=== PATIENT | female | born 1970 | race Caucasian/White ===

== ENCOUNTER 2021-09-28 12:41 | Outpatient (CLI) | payer BC, SELFPAY ==
--- NOTE | 2021-09-28 12:46 | ECHOD_ITS ---
Version 2 Reason For Study: Dyspnea/SOB Procedure This was a 2D Doppler, Color Flow transthoracic echocardiogram. Exam performed in department. Left Ventricle Normal LV size. Left ventricular systolic function is normal. The estimated ejection fraction is 60 %. Stage 1 diastolic dysfunction. No regional wall motion abnormalities noted. Right Ventricle Normal RV size. Normal systolic function. Atria Normal left atrium. Normal right atrium. Mitral Valve Normal mitral valve. Tricuspid Valve Normal tricuspid valve. Unable to estimate RV systolic pressure due to inadequate jet, pulmonary artery pressure probably normal. Aortic Valve Normal aortic valve. Trisinus/trileaflet aortic valve. Pulmonic Valve Normal pulmonic valve. Great Vessels Normal aortic root. The pulmonary artery is normal size. Normal inferior vena cava. Pericardium/Pleural No pericardial effusion. MMode/2D Measurements & Calculations LVIDd: 3.5 cm IVSd: 0.91 cm Ao root diam: 2.5 cm LVIDs: 2.4 cm LVPWd: 0.92 cm RVDd: 1.9 cm FS: 31.4 % LAV(MOD-bp): 16.3 ml LVAd ap4: 17.7 cm2 SV(MOD-sp4): 21.9 ml LAV(MOD-bp) Indexed: 9.5 ml/m2 LVLd ap4: 7.2 cm LAV(MOD-sp2): 16.3 ml EDV(MOD-sp4): 36.5 ml LAV(MOD-sp4): 13.9 ml EDV(sp4-el): 36.8 ml LVAs ap4: 9.8 cm2 LVLs ap4: 5.9 cm ESV(MOD-sp4): 14.6 ml ESV(sp4-el): 13.7 ml EF(MOD-sp4): 59.9 % EF(sp4-el): 62.6 % SV(sp4-el): 23.0 ml LA A4 area: 8.3 cm2 LA dimension(2D): 2.4 cm RA A4 area: 5.3 cm2 Doppler Measurements & Calculations MV E max westley: 59.6 cm/sec Lat Peak E' Westley: 13.8 cm/sec Med Peak E' Westley: 8.4 cm/sec MV A max westley: 73.2 cm/sec E/E' lat: 4.3 E/E' med: 7.1 MV E/A: 0.81 Ao V2 max: 101.4 cm/sec LV V1 max: 89.5 cm/sec PA V2 max: 63.1 cm/sec Ao max P.1 mmHg LV V1 max P.2 mmHg Ao V2 mean: 79.5 cm/sec Ao mean P.7 mmHg Ao V2 VTI: 17.1 cm ECHO/Echo Complete Interpretation Summary Normal LV size. Left ventricular systolic function is normal. The estimated ejection fraction is 60 %. Stage 1 diastolic dysfunction. Unable to estimate RV systolic pressure due to inadequate jet, pulmonary artery pressure probably normal. Ordering Physician: Collin Brown Referring Physician: Collin Brown Performed By: Anabel Hines RDCS, RVT
== END 2021-09-28 23:59 | disposition short-term general hospital (02) ==
PROVIDERS: Referring Provider Internal Medicine Critical Care Medicine; Visit Provider Internal Medicine Critical Care Medicine
DX: U07.1 COVID-19 (principal); R06.00 Dyspnea, unspecified; R06.02 Shortness of breath
CPT/HCPCS: 93306

== ENCOUNTER 2021-10-05 12:50 | Outpatient (CLI) | payer BC, SELFPAY ==
--- NOTE | 2021-10-07 07:05 | PFT ---
INTRODUCTION: The patient is a 51-year-old female that presents for pulmonary function studies secondary to a diagnosis of hypoxemia. Respiratory therapy reported good patient effort. Bronchodilators were used during testing. INTERPRETATION: Forced expiration spirometry demonstrates no evidence of a large airways obstructive ventilatory defect. There was no significant response to aerosolized bronchodilators. Spirograms are of good quality and plateau normally. Body plethysmography was performed and revealed a decreased TLC to 3.72 L, 72% of predicted, indicative of a mild restrictive ventilatory impairment. Diffusing capacity by single breath CO is reduced at 71% of predicted. IMPRESSION: Mild restrictive ventilatory impairment with symmetric reduction in diffusing capacity.
== END 2021-10-05 23:59 | disposition short-term general hospital (02) ==
PROVIDERS: Referring Provider Internal Medicine Critical Care Medicine; Visit Provider Internal Medicine Critical Care Medicine
DX: U07.1 COVID-19 (principal); J96.01 Acute respiratory failure with hypoxia
CPT/HCPCS: 94060; 94726; 94729

== ENCOUNTER 2021-10-08 12:51 | Outpatient (CLI) | payer BC, SELFPAY ==
[2021-10-08 13:22] VITALS: PULSE 116; PULSE 119; PULSE 120; PULSE 122; PULSE 127; PULSE 129; PULSE 130; PULSE 133; O2SAT 92; O2SAT 93; O2SAT 94; O2SAT 96; O2SAT 98
--- NOTE | 2021-10-08 13:28 | CPS ---
PATIENT ARRIVED ON RA FOR WALK TEST. SHE HAS OXYGEN AT HOME THROUGH [facility] HOSPITAL[facility]ATION IN AUGUST 2021. ENTIRE 6MIN WALK TEST ABLE TO BE COMPLETED ON ROOM AIR. PATIENT DECLINED THE NEED FOR REST BREAKS THROUGHOUT TESTING.
--- NOTE | 2021-10-09 10:14 | WT_ITS ---
PSN 6 Minute Walk Test 6 Minute Walk Test 6 Minute Walk Test: 6 Minute Walk Test PSN:6-Minute Walk Test Start: 10/08/21 13:22 Freq: Status: Active Protocol: [id number] Document 10/08/21 13:22 [facility] (Rec: 10/08/21 13:30 [facility] [id number]) 6 Minute Walk Test Date Performed 10/08/21 Time Performed 13:00 Height 5 ft 5 in Weight: 65.771 kg Weight in Pounds 145.[address]: Collin Brown Assistive device used: None Pre-test Oxygen Delivery Method Room Air Pulse Ox (%) 98 Pulse Rate (60-100 beats/min) 116 H Dyspnea June Scale (0-10) 2 1st minute Oxygen Delivery Method Room Air Pulse Ox (%) 96 Pulse Rate (60-100 beats/min) 120 H Dyspnea June Scale (0-10) 3 Number of Rests Taken 0 Reported Symptoms Increased Work of Breathing 2nd minute Oxygen Delivery Method Room Air Pulse Ox (%) 94 Pulse Rate (60-100 beats/min) 122 H Dyspnea June Scale (0-10) 3 Number of Rests Taken 0 Reported Symptoms Increased Work of Breathing 3rd minute Oxygen Delivery Method Room Air Pulse Ox (%) 92 Pulse Rate (60-100 beats/min) 127 H Dyspnea June Scale (0-10) 3 Number of Rests Taken 0 Reported Symptoms Increased Work of Breathing 4th minute Oxygen Delivery Method Room Air Pulse Ox (%) 93 Pulse Rate (60-100 beats/min) 133 H Dyspnea June Scale (0-10) 4 Number of Rests Taken 0 Reported Symptoms Increased Work of Breathing 5th minute Oxygen Delivery Method Room Air Pulse Ox (%) 94 Pulse Rate (60-100 beats/min) 129 H Dyspnea June Scale (0-10) 4 Number of Rests Taken 0 Reported Symptoms Increased Work of Breathing 6th minute Oxygen Delivery Method Room Air Pulse Ox (%) 93 Pulse Rate (60-100 beats/min) 130 H Dyspnea June Scale (0-10) 4 Number of Rests Taken 0 Reported Symptoms Increased Work of Breathing Post-test Oxygen Delivery Method Room Air Pulse Ox (%) 98 Pulse Rate (60-100 beats/min) 119 H Dyspnea June Scale (0-10) 2 Full Laps Walked 19 Partial Lap, Number of Tiles Walked 37 Total Distance Walked (ft) 1158 10/08/21 13:28 Cardiopulmonary Services by Bobbi Ceballos PATIENT ARRIVED ON RA FOR WALK TEST. SHE HAS OXYGEN AT HOME THROUGH [facility]OSPITAL[facility] IN AUGUST 2021. ENTIRE 6MIN WALK TEST ABLE TO BE COMPLETED ON ROOM AIR. PATIENT DECLINED THE NEED FOR REST BREAKS THROUGHOUT TESTING. Initialized on 10/08/21 13:28 - END OF NOTE Interpretation Interpretation: The patient ambulated 1158 feet over the course of 6 minutes beginning on room air without assistive devices. Pretesting oxygen saturation was noted to be 98% on room air. With ambulation, the chata oxygen saturation was 92%. This represents a significant exertional oxygen desaturation. Recommendations Recommendations: There is no indication for the use of supplemental oxygen at this time. However, close interval follow-up is recommended, given the degree of oxygen desaturation noted during the study.
== END 2021-10-08 23:59 | disposition short-term general hospital (02) ==
LOC: PSN 12:53
PROVIDERS: Referring Provider Internal Medicine Critical Care Medicine; Visit Provider Internal Medicine Critical Care Medicine
DX: U07.1 COVID-19 (principal); J96.01 Acute respiratory failure with hypoxia
CPT/HCPCS: 94618

== ENCOUNTER 2021-11-03 13:44 | Outpatient (RCR) | payer BC, SELFPAY ==
--- NOTE | 2021-11-12 07:43 | HP.OTFCE.D ---
FCE D/C Summary - Discharge LOUIS NAJERA was seen for a one time visit for an FCE on 11/03/21 and is discharged.
--- NOTE | 2021-11-12 07:43 | HP.FCE ---
Floor (Occasional 1-33% of Day): 35# Floor (Frequent 34-66% of Day): 18# Floor (Constant 67-100% of Day): 7# Floor PDL: Light-Medium Knee (Occasional 1-33% of Day): 30# Knee (Frequent 34-66% of Day): 15# Knee (Constant 67-100% of Day): 6# Knee PDL: Light-Medium Waist (Occasional 1-33% of Day): 30# Waist (Frequent 34-66% of Day): 15# Waist (Constant 67-100% of Day): 6# Waist PDL: Light-Medium Shoulder (Occasional 1-33% of Day): 30# Shoulder (Frequent 34-66% of Day): 15# Shoulder (Constant 67-100% of Day): 6# Shoulder PDL: Light-Medium Overhead (Occasional 1-33% of Day): 15# Overhead (Frequent 34-66% of Day): 8# Overhead (Constant 67-100% of Day): NA Overhead PDL: Sedentary-Light Bending: Frequent Ability (34-66% of day) Squatting: Frequent Ability (34-66% of day) Kneeling: Occasional Ability (1-33% of day) Reaching out: Constant Ability (67-100% of day) Reaching up: Constant Ability (67-100% of day) Sitting: Frequent Ability (34-66% of day) Walking: Frequent Ability (34-66% of day) Standing: Frequent Ability (34-66% of day) Duration Sedentary Sedentary Light Light Light Medium Medium Medium Heavy Very Heavy Heavy Occasional (0-33% of day) Frequent (34-66% of day) Constant (67-100% of day) 10 # Negligible Negligible 15 # 8 # Negligible 20 # 10# Negli. 35 # 18 # 7 # 50 # 25 # 10 # 75 # 100 # >100 # 38 # 50 # >50 # 15 # 20 # >20 # Weight:: 66.224 kg Hand Dominance: right Medical History Including Restrictions: Pt states she was in good health until she was dx with covid-19- pt was hospitalized for dx with covid Dec, 1 hospitalized 6 days- and developed bilateral PE. Pt states during her sickness she lost 27 lbx. Due to severity of how covid affected pt she was unable to ambulate without a ww. or perform her ADLS. pt states she stopped walking with her ww Sep.17. pt states she worked with her son's to gain strength- Pt states she was taken off O2 since . pt states she does get SOB with some activities- pt states she was also newly dx with DM-. pt is exercising on a daily basis to help her get her strength back. pt denies formal Physical therapy Diagnoses: Bilateral Pulmonary Embolism on medication. DM recent dx. since her covid dx Symptoms: SOB. 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 pt states she is worried of standing and squatting for long hours of time and doing her job safety- pt states her stamina is not good. Behavioral: pt was cooperative during assessment. ADLS: Pt lives with with one son in two story home- with 5 entry steps with one rail- pt states she doesn't have trouble getting in or out of her home. pt states her bedroom is on second floor - 17 steps with one rail to get to 2nd floor- pt has tub shower combination- states she initially was using a shower chair- and use of BSC - pt drives [place]. and returned to driving once she was removed off of O2- pt returned to grocery shopping by herself towards the end of Sep. pt states she has returned to cooking/cleaning and laundry- Physical Examination: 102-104 (94) heart rate. SpO2 96 ROM: Pt demonstrated no limitations in ROM of UB/LB/trunk neck Strength: pt demo with generalized UB MMT at 4/5. 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 right 2.83 interpretation =Normal sensation. left 2.83 interpretation =Normal sensation Fine Motor: 9-hole peg test. right 18 seconds = 75% for female her age. left 19 seconds = 75% for female her age Balance: Pt demo good -normal balance Bending: pt demo the ability to bend forward 3/3, 10/10, heart rate 120. pt completed 10/10 rapidly. heart rate 142. spo2 96. pt can bend forward on a frequent ability Squatting: pt demo the ability to squat 3/3, 10/10, and 10/10 rapidly. heart rate 129. spo2 96. rapidly heart rate 133. spo2 97. pt demo ability to squat on occasional ability ( heart rate) Kneeling: pt demo the ability to kneel 3/3x and 4/10. heart rate 136. spo2 94. pt sob and reported legs feeling weak. pt unable to complete kneeling- pt can kneel on occasional ability Reaching out/up: pt demo the ability to reach up/out 3/3 , 10/10 heart rate 122 spo2 97. pt completed 10/10 x rapidly heart rate 115 SpO2 97. pt can reach out/up on constant ability Walking: pt demonstrated the ability to ambulate for 13 min. during this ambulation pts heart rate 157-146. Pt reported SOB but SpO2 maintained 96 throughout. pt can ambulate on a frequent ability Standing: pt demonstrated the ability to stand for 8 min shifting her body wt. from side to side- pt can stand on frequent ability. Sitting: pt demo the ability to sit for 45 min with no apparent or expressed discomfort. pt can sit on frequent ability Climbing Stairs: pt demo the ability to ascend 10 steps with a reciprocal step pattern (valgus motion bilateral knees indicating LE weakness ) pt descended 10 steps with a single leg step pattern and use of bilateral handrails. Floor Lift: pt demonstrated the ability to lift # 35 maximally from this level with fair lifting mechanics- Pt keeps narrow base of support. Knee Lift: pt demonstrated the ability to lift 30# maximally from this level with fair lifting mechanics- Pt keeps narrow base of support Waist Lift: pt demonstrated the ability to lift 30# maximally from this level with fair lifting mechanics- Pt keeps narrow base of support. 120. spo2 98 Shoulder Lift: pt demonstrated the ability to lift 30# maximally from this level with good lifting mechanics- Overhead Lift: pt demonstrated the ability to lift 15# maximally from this level with good lifting mechanics Carrying: pt demonstrated the ability to carry 25# for 40 feet with fair ability. 133 heart rate. spo2 96. pt reported SOB following and as this was completed toward end of session. Comments: heart rate 135 after lifting portion of assessment. pt demo a decrease in endurance throughout assessment-.
== END 2021-11-03 19:00 | disposition home or self-care (01) ==
LOC: OT 13:44
PROVIDERS: PCP Nurse Practitioner Primary Care; Referring Provider Nurse Practitioner Primary Care; Visit Provider Nurse Practitioner Primary Care
DX: Z86.711 Personal history of pulmonary embolism (principal)
CPT/HCPCS: 97750